=== PATIENT | female | born 1955 | race Caucasian/White ===

== ENCOUNTER 2021-01-26 17:17 | Emergency (ER) | payer MEDICARE, MEDICAID ==
[~2021-01-26] VITALS: Ht 154.9 cm; Wt 60.8 kg
[2021-01-26 17:17] VITALS: BP_SYST 128
--- NOTE | 2021-01-26 17:17 | NUR ---
Patient triaged and placed in waiting room. VSS and patient appears in no acute distress at this time. Accompanied by DAUGHTER, awaiting available bed, and MD notified of need for MSE.
--- NOTE | 2021-01-26 17:55 | NUR ---
PT REQUESTING TO HAVE METPORLOL-SUCC 100MG 1 TAB DAILY AND OMEPRAZOLE 20MG 1 TAB DAILY REFILLED
[2021-01-26 18:22] LABS: BASOPHILS # (AUTO) 0.1 K/uL (0.0-0.2); BASOPHILS % (AUTO) 1.1 % (0.0-2.0); EOSINOPHILS # (AUTO) 0.2 K/uL (0.0-0.4); EOSINOPHILS % (AUTO) 2.1 % (0.0-4.0); HEMOGLOBIN 16.4 g/dL (12.0-16.0); LYMPHOCYTES # (AUTO) 1.8 K/uL (1.0-5.5); LYMPHOCYTES % (AUTO) 22.6 % (20.5-51.5); MEAN CORPUSCULAR HEMOGLOBIN 32 pg (27-31); MEAN CORPUSCULAR HGB CONC 34 % (32-36); MEAN CORPUSCULAR VOLUME 93 fL (79.0-98.0); MONOCYTES # (AUTO) 0.6 K/uL (0.0-1.0); MONOCYTES % (AUTO) 6.8 % (1.7-9.3); NEUTROPHILS # (AUTO) 5.5 K/uL (1.8-7.7); NEUTROPHILS % (AUTO) 67.4 % (40.0-70.0); PLATELET COUNT (AUTO) 315 K/uL (130-430); RED BLOOD CELL COUNT(AUTO) 5.18 MIL/uL (4.2-6.2); RED CELL DISTRIBUTION WIDTH 14.3 % (9.0-15.0); WHITE BLOOD COUNT (AUTO) 8.1 K/uL (4.8-10.8)
[2021-01-26 18:50] LABS: ANION GAP 4 (5-15); CALCIUM 8.9 mg/dL (8.4-11.0); CHLORIDE 96 mmol/L (98-107); CREATININE 1.02 mg/dL (0.55-1.30); POTASSIUM 4.4 mmol/L (3.5-5.1); SODIUM SERUM 132 mmol/L (136-145); UREA NITROGEN, BLOOD 11 mg/dL (8-21)
[2021-01-26 18:55] LABS: ALANINE AMINOTRANSFERASE 24 U/L (12-78); ALBUMIN 3.2 g/dL (3.4-4.8); ASPARTATE AMINOTRANSFERASE 30 U/L (10-37); TOTAL BILIRUBIN 0.5 mg/dL (0.0-1.0)
--- NOTE | 2021-01-26 19:25 | NUR ---
call pt name in the WR.NO answer.
--- NOTE | 2021-01-26 19:30 | NUR ---
call pt name in the WR.NO answer.
--- NOTE | 2021-01-26 19:35 | NUR ---
call pt name in the WR.NO answer.
[2021-01-26 19:56] LABS: GFR AFRICAN AMERICAN 70 mL/min (>90); GLUCOSE 581 mg/dL (70-99)
[2021-01-27] MEDS ORDERED: METO25TA3 PO (13:59)
[2021-01-27] MEDS ORDERED: METF-834 PO (14:01)
== END 2021-01-26 19:35 | disposition left against medical advice (07) ==
LOC: SED 17:17
DX: R42 Dizziness and giddiness (principal); Z53.21 Procedure and treatment not carried out due to patient leaving prior to being seen by health care provider
CPT/HCPCS: 36415; 80053; 84484; 85025

== ENCOUNTER 2021-01-27 10:06 | Emergency (ER) | payer MEDICARE, MEDICAID ==
[~2021-01-27] VITALS: Ht 154.9 cm; Wt 69.9 kg
[2021-01-27 10:10] VITALS: BP_SYST 156
--- NOTE | 2021-01-27 10:10 | NUR ---
Placed in room 6 . Placed on compliance monitor, blood pressure machine and pulse oximeter. To gown for exam. Side rails up.
--- NOTE | 2021-01-27 10:15 | NUR ---
PT CAME IN C/O RUNNING OUT OF HER METROPOLOL 5 DAYS AGO, DIZZINESS, RINGING IN THE EARS, FLUID IN BOTH EARS, FEELING LIKE THE ROOM IS SPINNING. PT AMBULATES UNSTEADY, AAOX4, V/S STABLE
--- NOTE | 2021-01-27 10:28 | NUR ---
ER DR. VILLEGAS AT THE BEDSIDE EXAMINING PT
[2021-01-27] MEDS ORDERED: cloNIDine HCL 0.1 MG TABLET PO ONE (11:00)
--- NOTE | 2021-01-27 11:25 | NUR ---
# 20 gauge angiocath placed to RAC. Use of asceptic technique. Opsite placed over site. Blood return noted. Blood for lab drawn from site. Flushed with 10 cc of normal saline. No evidence of infiltration noted. Patient tolerated well.
[2021-01-27] MEDS ORDERED: NACL 0.9% 1,000 ML IV ONE (11:30)
[2021-01-27 11:37] LABS: BASOPHILS # (AUTO) 0.1 K/uL (0.0-0.2); BASOPHILS % (AUTO) 0.8 % (0.0-2.0); EOSINOPHILS # (AUTO) 0.1 K/uL (0.0-0.4); EOSINOPHILS % (AUTO) 1.8 % (0.0-4.0); HEMOGLOBIN 15.4 g/dL (12.0-16.0); LYMPHOCYTES # (AUTO) 1.6 K/uL (1.0-5.5); LYMPHOCYTES % (AUTO) 21.1 % (20.5-51.5); MEAN CORPUSCULAR HEMOGLOBIN 31 pg (27-31); MEAN CORPUSCULAR HGB CONC 34 % (32-36); MEAN CORPUSCULAR VOLUME 91 fL (79.0-98.0); MONOCYTES # (AUTO) 0.5 K/uL (0.0-1.0); MONOCYTES % (AUTO) 6.8 % (1.7-9.3); NEUTROPHILS # (AUTO) 5.2 K/uL (1.8-7.7); NEUTROPHILS % (AUTO) 69.5 % (40.0-70.0); PLATELET COUNT (AUTO) 265 K/uL (130-430); RED BLOOD CELL COUNT(AUTO) 4.94 MIL/uL (4.2-6.2); WHITE BLOOD COUNT (AUTO) 7.4 K/uL (4.8-10.8)
--- NOTE | 2021-01-27 11:44 | NUR ---
PORTABLE X-RAY AT THE BEDSIDE
[2021-01-27 11:52] LABS: ACETONE, SERUM SMALL (NEGATIVE)
[2021-01-27 12:06] LABS: ALANINE AMINOTRANSFERASE 28 U/L (12-78); ALBUMIN 3.2 g/dL (3.4-4.8); ASPARTATE AMINOTRANSFERASE 24 U/L (10-37); CALCIUM 8.8 mg/dL (8.4-11.0); CREATININE 0.83 mg/dL (0.55-1.30); GLUCOSE 352 mg/dL (70-99); TOTAL BILIRUBIN 0.6 mg/dL (0.0-1.0); UREA NITROGEN, BLOOD 12 mg/dL (8-21)
[2021-01-27 12:37] LABS: GFR AFRICAN AMERICAN 88 mL/min (>90)
[2021-01-27 12:40] LABS: ANION GAP 4 (5-15); CHLORIDE 99 mmol/L (98-107); POTASSIUM 3.8 mmol/L (3.5-5.1); SODIUM SERUM 134 mmol/L (136-145)
[2021-01-27 12:57] LABS: CHOLESTEROL 231 mg/dL (<200); HDL CHOLESTEROL 39 mg/dL (>55); LDL CHOLESTEROL 134 mg/dL (<100); TRIGLYCERIDES 349 mg/dL (30-150)
--- NOTE | 2021-01-27 13:00 | NUR ---
PT RESTING IN GURNEY, AAOX4, V/S STABLE, EVEN UNLABORED RESPIRATIONS, NO DISTRESS NOTED
[2021-01-27] MEDS ORDERED: METO25TA3 PO (13:59)
[2021-01-27] MEDS ORDERED: METF-834 PO (14:01)
[2021-01-27 14:16] VITALS: BP_SYST 162
--- NOTE | 2021-01-27 14:18 | NUR ---
Patient given written and verbal discharge instructions and verbalizes understanding. ER MD discussed with patient the results and treatment provided. Patient in stable condition. ID arm band removed. IV catheter removed intact and dressing applied, no active bleeding. Rx of METFORMIN AND METROPROLOL given. Patient educated on pain management and to follow up with PMD. Pain Scale 0/10. Opportunity for questions provided and answered. Medication side effect fact sheet provided.
== END 2021-01-27 14:18 | disposition home or self-care (01) ==
LOC: SED 10:06
DX: R42 Dizziness and giddiness (principal); I10 Essential (primary) hypertension; E11.9 Type 2 diabetes mellitus without complications
CPT/HCPCS: 36415; 36600; 70450; 71045; 76376; 80053; 80061; 82009; 82803; 82962; 83880; 84484; 85025; 93005; 96360; 99285; J7030